=== PATIENT | male | born 1950 | race Caucasian/White ===

== ENCOUNTER 2022-01-14 09:15 | Inpatient (IN) ==
[2022-01-14] MEDS ORDERED: IOPAMIDOL 100 ML BOTTLE IV ONE (09:16)
[2022-01-14] MEDS ORDERED: morphine 4 MG/ML VIAL IV ONE ×2 (09:30→12:32)
[2022-01-14] MEDS ORDERED: 0.9 % SODIUM CHLORIDE 1,000 ML IV ONE (09:30)
[2022-01-14] MEDS ORDERED: PHENobarb/HYOSCY/ATROPINE/SCOP 1 DOSE BOTTLE PO ONE (09:37)
--- NOTE | 2022-01-14 09:41 | Emergency Department Note ---
HPI General Chief complaint: Weakness Stated complaint: abd pain/nausea/weakness Time Seen by Provider: 01/14/22 09:20 Source: patient Mode of arrival: wheelchair Limitations: no limitations History of Present Illness HPI Narrative: Narrative: Patient presents to the emergency department with a chief complaint of abdominal pain. He reports its below his ribs on both sides. He denies any fevers or chills. He reports mostly normal bowel movements he has had a few soft ones. The patient reports dry heaves there has been no vomiting otherwise. He does have a prior history of appendectomy, no other abdominal surgeries. Does have a history of GERD. Patient's pain started on Thursday, he was actually seen and evaluated in the emergency department he did have a leukocytosis of 17,000 however at that time a CT scanner was down, ultrasound of the gallbladder and kidneys was unremarkable. Patient reports his symptoms have still been lingering since. Related Data Home Medications Medication Instructions Recorded Confirmed pantoprazole 40 mg tablet,delayed 40 mg PO QAM 02/26/18 01/14/22 release Lactobacillus acidophilus 1,000 mmu cells PO QDAY 07/29/21 01/14/22 (Acidophilus) aspirin 81 mg tablet,delayed 81 mg PO QDAY 07/29/21 01/14/22 release cholecalciferol (vitamin D3) 25 25 mcg PO QDAY 07/29/21 01/14/22 mcg (1,000 unit) capsule docusate sodium 100 mg capsule 100 mg PO TID PRN cap 07/29/21 01/14/22 (Stool Softener) glucosamine sulf dipot 1 cap PO DAILY 07/29/21 01/14/22 chlr,msm,chond 550 mg-C 30 mg-salas 1 mg capsule (Glucosamine Chondroitin) lysine 500 mg tablet 500 mg PO QDAY 07/29/21 01/14/22 mecobalamin (vitamin B12) 1,000 1,000 mcg SUBLINGUAL QDAY 07/29/21 01/14/22 mcg disintegrating tablet,sublingual metformin 500 mg tablet 500 mg PO QDAY tab 07/29/21 01/14/22 milk thistle 175 mg tablet 175 mg PO BID 07/29/21 01/14/22 xgmarnlx-mkt-gbncp acid 300 1 tab PO QDAY 07/29/21 01/14/22 mcg-lycopene 600 mcg-lutein 300 mcg tablet (Men 50 Plus Multivitamin) omega-3 360 dn-nuv-ido-fish oil 1 cap PO QDAY 07/29/21 01/14/22 1,200 mg capsule,delayed release baclofen 20 mg tablet 20 mg PO BID PRN 01/14/22 01/14/22 hydralazine 25 mg tablet 25 mg PO TID 01/14/22 01/14/22 potassium chloride 10 mEq 10 meq PO QDAY 01/14/22 01/14/22 tablet,extended release(part/cryst) spironolactone 25 mg tablet 25 mg PO QDAY 01/14/22 01/14/22 verapamil 360 mg 24 hr 240 mg PO QDAY 01/14/22 01/14/22 capsule,extended release Previous Rx's Medication Instructions Recorded atorvastatin 20 mg tablet 20 mg PO QDAY #90 tab 07/29/21 gemfibrozil 600 mg tablet 600 mg PO QAM #90 tab 07/29/21 diclofenac sodium 1 % topical gel 4 g TOPICAL QID #100 g 01/08/22 dicyclomine 20 mg tablet 20 mg PO QID PRN 3 Days #12 tab 01/12/22 ondansetron 4 mg disintegrating 4 mg PO Q8H PRN #9 tab 01/12/22 tablet dbplozp-ufrubxyjgq-YGY-caffeine 30 1 cap PO Q6H PRN #120 cap 01/13/22 mg-50 mg-325 mg-40 mg capsule (Ascomp with Codeine) gabapentin 300 mg capsule 300 mg PO QHS #30 cap 01/13/22 Allergies Allergy/AdvReac Type Severity Reaction Status Date / Time No Known Drug Allergies Allergy Verified 01/14/22 09:18 Review of Systems ROS ROS Narrative: Narrative: All systems ED: reviewed and negative except as stated. [facility] Narrative Patient History Narrative: Narrative: Medical/Surgical/Family History All Active Problems (Updated 01/14/22 @ 15:42 by Roger Avila MD) SBO (small bowel obstruction) (Acute) Leukocytosis (Acute) SBO (small bowel obstruction) (Acute) Medication management (Acute) Abdominal pain (Acute) Degenerative arthritis of cervical spine (Acute) Neck pain (Acute) Left shoulder pain (Acute) Migraine (Acute) Memory loss (Acute) Hyperlipidemia (Acute) GERD (gastroesophageal reflux disease) (Acute) Hypertension (Chronic) Severe headache (Chronic) Medical History Hypertension Migraine Severe headache Surgical History History of appendectomy History of colonoscopy (08/04/11) History of tonsillectomy (~1965) Family History Sister Lung cancer Grandmother Lung cancer Paternal Brother Dementia Mother Diabetes mellitus Father Diabetes mellitus Social History Smoking Status: Never smoker Alcohol Intake Frequency: does not drink Substance Use: does not use Exam Narrative Narrative: Narrative: Vital signs noted General: Awake. Alert. No distress. HEENT: NCAT PERRL EOMI. No conjunctivitis. Membranes moist. Neck: No meningeal signs. No PTP. No adenopathy. No stridor. No masses. No STS. Cardiovascular: RRR. No murmur. No rubs. No gallops. Respiratory: No respiratory distress. Breath sounds equal. Lungs clear. Gastrointestinal: Soft. Tenderness midepigastric, worse on the left, there is no guarding rigidity or peritoneal signs Arzate sign is negative Musculoskeletal: No pain. No soft tissue swelling. Good ROM. No signs injury Skin: Warm. Dry. No rash General Limitations: no limitations Course Vital Signs Vital signs: Vital Signs Temperature 97.4 F 01/14/22 09:15 Pulse Rate 78 01/14/22 09:15 Respiratory Rate 20 01/14/22 09:15 Pulse Oximetry (%) 97 01/14/22 09:15 Temperature 98.9 F 01/14/22 14:03 Pulse Rate 74 01/14/22 14:03 Respiratory Rate 14 01/14/22 14:03 Blood Pressure 116/65 01/14/22 14:03 Pulse Oximetry (%) 92 01/14/22 14:03 [facility] MDM Narrative Medical decision making narrative: Narrative: Patient presents to the emergency department with abdominal pain, dry heaves. He last had a bowel movement 2 days ago. He states this is not uncommon for him. Denies fevers or chills. Patient was seen a few days ago unfortunately at that time CT scanner was down. Labs show a leukocytosis of 18,000 his lactate is 1.4 he is hemodynamically stable, CT scan was obtained that shows mechanical small bowel obstruction with transition point in the right side of the abdomen, mesenteric spiculation, segment of small bowel at the site of obstruction is thickened no evidence of acute ischemia, there is probable mild pneumatosis in the sigmoid colon. I spoke with Dr. Sraavia he will see and evaluate the patient. NG will be placed, patient will be started on Zosyn. Patient updated with plan of care. Lab Data Result diagrams: 01/14/22 09:33 Labs: Lab Results 01/14/22 01/14/22 01/14/22 Range/Units 09:33 09:33 11:50 WBC 18.7 H (4.5-11.0) K/mcL RBC 5.26 (4.63-6.08) M/mcL Hgb 16.2 (13.7-17.5) g/dL Hct 47.7 (40.1-51.0) % POC Hct 48 (41-55) % MCV 90.7 (80.0-100.0) fL MCH 30.8 (26.0-34.0) pg MCHC 34.0 (31.0-36.0) g/dL RDW 13.6 (11.5-14.5) % Plt Count 235 (140-440) K/mcL MPV 12.2 H (7.4-10.4) fL Neut % (Auto) 76.9 (38.0-78.0) % Lymph % (Auto) 7.7 L (15.5-49.0) % [place]ett % (Auto) 4.8 (1.0-12.0) % Eos % (Auto) 10.4 H (0.0-7.0) % Baso % (Auto) 0.2 (0.0-2.0) % Lymph # (Auto) 1.44 L (1.50-4.80) K/mcL Pickett # (Auto) 0.89 (0.10-0.90) K/mcL Eos # (Auto) 1.94 H (0.00-0.70) K/mcL Baso # (Auto) 0.04 (0.00-0.30) K/mcL Absolute Neutrophils 14.40 H (1.80-8.00) K/mcL POC Sodium 141 (133-145) mEq/L POC Potassium 3.4 (3.3-5.1) mEql/L POC Chloride 100 (96-108) mEq/L POC Total CO2 28 (22-30) mmol/L POC BUN 17 (6-20) mg/dL POC Creatinine 0.5 L (0.6-1.2) mg/dL POC Glucose 171 H (70-105) mg/dL POC WB Ioniz Calcium 1.12 L (1.16-1.32) mmEq/L Total Bilirubin 0.5 (0.1-1.0) mg/dL Direct Bilirubin < 0.2 (0-0.3) mg/dL AST 25 (<40) U/L ALT 13 (<40) U/L Alkaline Phosphatase 81 (39-117) U/L Total Protein 6.8 (5.9-8.4) gm/dL Albumin 4.1 (3.2-5.2) gm/dL Globulin 2.7 (2.2-3.7) gm/dL Lipase 17 (7-60) U/L Urine Color Yellow Urine Appearance Clear (Clear) Urine pH 6.0 (5.0-9.0) Ur Specific [place] 1.046 (1.000-1.035) Urine Protein Negative (Negative) mg/dL Urine Glucose (UA) Negative (Negative) mg/dL Urine Ketones 5 A (Negative) mg/dL Urine Occult Blood Negative (Negative) mg/dL Urine Nitrate Negative (Negative) Urine Bilirubin Negative (Negative) mg/dL Urine Urobilinogen Negative mg/dL Ur Leukocyte Esterase Negative (Negative) /uL Ur Culture Indicated? No ED POC Tests ED POC Tests: AMARILIS - SARS Antigen Negative Discharge Plan Patient/Caregiver Discharge Instructions Pt seen by PSYCHOMETRIST/PA only: No Clinical Impression: SBO (small bowel obstruction), Leukocytosis Patient Disposition: Xfer As Inpt ([facility]) Condition: Fair Discharge Date/Time: 01/14/22 13:35
[2022-01-14 09:49] LABS: POC Blood Urea Nitrogen 17 mg/dL (6-20); POC CO2 28 mmol/L (22-30); POC Calcium, Ionized 1.12 mmEq/L (1.16-1.32); POC Chloride 100 mEq/L (96-108); POC Creatinine 0.5 mg/dL (0.6-1.2); POC Glucose, Random 171 mg/dL (70-105); POC Hematocrit 48 % (41-55); POC Potassium 3.4 mEql/L (3.3-5.1); POC Sodium 141 mEq/L (133-145)
--- NOTE | 2022-01-14 10:19 | Cat Scan Report ---
INDICATION: abdominal pain, diverticulitis? COMPARISON: Previous abdominal ultrasound dated 01/12/2022 TECHNIQUE: Axial images were obtained through the abdomen and pelvis. Sagittally and coronally reformatted images. 80 mL Isovue 370 injected intravenously. Oral contrast material was not administered FINDINGS: Lung bases:Negative. No pulmonary parenchymal nodule. No pleural fluid or pericardial fluid Liver:Negative. No focal intrahepatic mass. No focal abnormality. Liver contour is smooth. No evidence for cirrhosis Gallbladder, bilary:No calcified gallstones. No gallbladder wall thickening. No dilated intra or extrahepatic bile ducts. Spleen:No splenomegaly. Normal enhancement of splenic and portal veins. Pancreas:No pancreatic mass. No peripancreatic abnormality Adrenal glands:Negative Kidneys,ureters,bladder:No solid renal mass. No hydronephrosis. No obstructing or nonobstructing calculi. No hydroureter. No ureteral calculus. No bladder stone. No detectable bladder mass. Gastrointestinal:There is no detectable colonic mass. There is mild diverticulosis without evidence for diverticulitis. There is mild pneumatosis coli in the sigmoid colon. There is dilatation of the jejunum and proximal ileum. There is a segment of thickened small bowel wall in the right side of the abdomen with mild small bowel feces. There is mechanical small bowel obstruction. There is abnormal mesentery in the right side of the abdomen with a spiculated appearance. This could be postsurgical scarring. Carcinoid tumor is possible. Follow-up CT scan is recommended. A well-defined mesenteric mass is not appreciated. Small bowel wall enhances without evidence for small bowel ischemia. Negative stomach and duodenum. No focal abnormality. Appendix: The appendix is removed Vascular:Negative abdominal aorta. Superior mesenteric artery and celiac trunk are normal. Normal opacification of the inferior mesenteric artery Lymphatic:No retroperitoneal or mesenteric adenopathy Mesentery, peritoneum: There is ascitic fluid. This is perihepatic and pelvic. There is no discrete peritoneal based mass. There is no pneumoperitoneum. No discrete intra-abdominal abscess Reproductive:Prostate is not significantly enlarged Musculoskeletal:No lumbar compression fractures. Multilevel degenerative disc disease. Sacrum and pelvis are negative. Hips are negative No abdominal wall or inguinal hernia IMPRESSION: 1. Mechanical small bowel obstruction with transition point in the right side of the abdomen. 2. There is mesenteric spiculation. This may be postsurgical. Carcinoid tumor is not excluded. Follow-up examination recommended 3. Moderate ascites 4. Segment of small bowel at the site of obstruction with thickened bowel wall. There is no nonenhancing small bowel to indicate ischemia 5. Probable mild pneumatosis coli in the sigmoid colon. This is nonspecific. 6. Severe multilevel degenerative disc disease and lumbar spine. No acute abnormality The exam was performed using radiation dose optimization techniques including, but not limited to, automated exposure control, adjustment of the mA and/or kV according to patient size and use of iterative reconstruction technique. Interpreted and Authenticated by: Munir Preciado 01/14/22
[2022-01-14 10:31] LABS: Basophils # (Auto) 0.04 K/mcL (0.00-0.30); Basophils % (Auto) 0.2 % (0.0-2.0); Eosinophils # (Auto) 1.94 K/mcL (0.00-0.70); Eosinophils % (Auto) 10.4 % (0.0-7.0); Hematocrit 47.7 % (40.1-51.0); Hemoglobin 16.2 g/dL (13.7-17.5); Lymphocytes # (Auto) 1.44 K/mcL (1.50-4.80); Lymphocytes % (Auto) 7.7 % (15.5-49.0); Mean Cell Volume 90.7 fL (80.0-100.0); Mean Platelet Volume 12.2 fL (7.4-10.4); Monocytes # (Auto) 0.89 K/mcL (0.10-0.90); Monocytes % (Auto) 4.8 % (1.0-12.0); Neutrophils % (Auto) 76.9 % (38.0-78.0); Platelet Count 235 K/mcL (140-440); RBC 5.26 M/mcL (4.63-6.08); Red Cell Distribution Width 13.6 % (11.5-14.5); WBC 18.7 K/mcL (4.5-11.0)
[2022-01-14 10:47] LABS: ALT/SGPT 13 U/L (<40); AST/SGOT 25 U/L (<40); Albumin 4.1 gm/dL (3.2-5.2); Alkaline Phosphatase 81 U/L (39-117); Bilirubin,Direct < 0.2 mg/dL (0-0.3); Bilirubin,Total 0.5 mg/dL (0.1-1.0); Globulin 2.7 gm/dL (2.2-3.7)
[2022-01-14] MEDS ORDERED: PIPERACILLIN SODIUM/TAZOBACTAM 3.375 GM in DEXTROSE 5% IN WATER 50 ML IV ONE (11:08)
--- NOTE | 2022-01-14 12:39 | General Surgery Consult Note ---
HPI Data of Consult Patient: new to practice Consult date: 01/14/22 Primary Care Provider: Zeina Harrington Consult Narrative Patient Information: Note initiated : 01/14/22 at 12:21 pm Service Date, if different from initiated Date: [] Patient: Damian Lambert 71 y/o M admitted on for abd pain/nausea/weakness. Chief Complaint: [Abdominal Pain] Mr Lambert is seen in consultation after a now 3 day history of non resolving abdominal pain centered largely in the Upper Abdomen and characterized as well by dry heaves, fatigue, along with lack of gas and stool. He has not had fevers or chills and denies any bleeding. His most recent Colonoscopy was 5 years ago and was positive only for a few polyps. He has NO history of Crohns or Ulcerative Colitis and he describes his health as good overall. He denies any cardiac issues and is not on any oral anticoagulants. He has no history of pulmonary issues and denies use of CPAP, BIPAP or home O2. He has issues with HTN and Hyperlipidemia and also gets migraines. He has had a past open appendectomy dating back 20-30 years but no other abdominal operations. There is no history of substantial weight loss. He was seen in the ER yesterday and is back today not feeling improved. CT Scan demonstrates findings felt to be c onsistent with SBO without evidence of ischemia or definitive etiology. Reason for consult: Bowel Obstruction cc:: CC: PFSH PFSH All Active Problems (Updated 01/14/22 @ 12:32 by Balaji Saravia MD) SBO (small bowel obstruction) (Acute) Medication management (Acute) Abdominal pain (Acute) Degenerative arthritis of cervical spine (Acute) Neck pain (Acute) Left shoulder pain (Acute) Migraine (Acute) Memory loss (Acute) Hyperlipidemia (Acute) GERD (gastroesophageal reflux disease) (Acute) Hypertension (Chronic) Severe headache (Chronic) Medical History Hypertension Migraine Severe headache Surgical History History of appendectomy History of colonoscopy (08/04/11) History of tonsillectomy (~1965) Family History Sister Lung cancer Grandmother Lung cancer Paternal Brother Dementia Mother Diabetes mellitus Father Diabetes mellitus Social History marital status: occupational status: retired smoking status: Never smoker alcohol intake frequency: does not drink substance use type: does not use MEDS/ALLERGIES Home Medications and Allergies Home Medications Medication Instructions Recorded Confirmed Type pantoprazole 40 mg tablet,delayed 40 mg PO QAM 02/26/18 01/13/22 History release Lactobacillus acidophilus 1,000 mmu cells PO QDAY 07/29/21 01/13/22 History (Acidophilus) aspirin 81 mg tablet,delayed 81 mg PO QDAY 07/29/21 01/13/22 History release atorvastatin 20 mg tablet 20 mg PO QDAY #90 tab 07/29/21 01/13/22 Rx cholecalciferol (vitamin D3) 25 25 mcg PO QDAY 07/29/21 01/13/22 History mcg (1,000 unit) capsule docusate sodium 100 mg capsule 100 mg PO TID PRN cap 07/29/21 01/13/22 History (Stool Softener) gemfibrozil 600 mg tablet 600 mg PO QAM #90 tab 07/29/21 01/13/22 Rx glucosamine sulf dipot cap PO 07/29/21 01/13/22 History chlr,msm,chond 550 mg-C 30 mg-salas 1 mg capsule (Glucosamine Chondroitin) lysine 500 mg tablet 500 mg PO QDAY 07/29/21 01/13/22 History mecobalamin (vitamin B12) 1,000 1,000 mcg SUBLINGUAL QDAY 07/29/21 01/13/22 History mcg disintegrating tablet,sublingual metformin 500 mg tablet 500 mg PO QDAY tab 07/29/21 01/13/22 History milk thistle 175 mg tablet 175 mg PO BID 07/29/21 01/13/22 History gohtewvq-pcn-ojlhp acid 300 1 tab PO QDAY 07/29/21 01/13/22 History mcg-lycopene 600 mcg-lutein 300 mcg tablet (Men 50 Plus Multivitamin) omega-3 360 rz-xdu-neq-fish oil 1 cap PO QDAY 07/29/21 01/13/22 History 1,200 mg capsule,delayed release hydralazine 25 mg tablet See Rx Instructions .ROUTE 09/30/21 01/13/22 Rx .COMPLEX #90 tab potassium chloride 10 mEq See Rx Instructions .ROUTE 09/30/21 01/13/22 Rx tablet,extended release(part/cryst) .COMPLEX #30 tab spironolactone 25 mg tablet See Rx Instructions .ROUTE 09/30/21 01/13/22 Rx .COMPLEX #30 tab diclofenac sodium 1 % topical gel 4 g TOPICAL QID #100 g 01/08/22 01/13/22 Rx dicyclomine 20 mg tablet 20 mg PO QID PRN 3 Days #12 tab 01/12/22 01/13/22 Rx ondansetron 4 mg disintegrating 4 mg PO Q8H PRN #9 tab 01/12/22 01/13/22 Rx tablet hrsybpn-qtoocuscqo-CXJ-caffeine 30 1 cap PO Q6H PRN #120 cap 01/13/22 01/13/22 Rx mg-50 mg-325 mg-40 mg capsule (Ascomp with Codeine) gabapentin 300 mg capsule 300 mg PO QHS #30 cap 01/13/22 01/13/22 Rx verapamil 360 mg 24 hr 360 mg PO QDAY #90 cap 01/13/22 01/13/22 Rx capsule,extended release Allergies Allergy/AdvReac Type Severity Reaction Status Date / Time No Known Drug Allergies Allergy Verified 01/14/22 09:18 Physical Examination Vital Signs Vital signs: Temp Pulse Resp BP Pulse Ox 97.4 F 75 20 137/63 95 01/14/22 09:15 01/14/22 11:21 01/14/22 11:21 01/14/22 11:21 01/14/22 11:21 General physical appearance General physical exam: well developed, well nourished and no distress Eyes Eye exam: normal ocular movement; negative icteric ENT ENT exam: normal pinna and normal nares Head Head exam IM: Present atraumatic, normal inspection and normocephalic Neck Neck exam: no masses, trachea midline and no lymphadenopathy; negative deviated trachea Cardiovascular Cardiovascular exam IM: Present normal rate and rhythm and RRR Respiratory Respiratory exam: normal expansion and normal respiratory effort Abdomen Abdomen: Present soft (soft and non distended, mild diffuse tenderness but minimal, no mass or hernia appreciable on exam ) Integumentary Integumentary: Present no rash and other (normal appearing intact skin ) Neurologic Neurologic: Present other (grossly intact) Musculoskeletal Musculoskeletal: Present other (normal external appearance ) Psychiatric Psychiatric: Present oriented to time, oriented to person and oriented to place Results Labs Result diagrams: 01/14/22 09:33 Labs: Abnormal lab results 01/14/22 01/14/22 Range/Units 09:33 09:33 WBC 18.7 H (4.5-11.0) K/mcL MPV 12.2 H (7.4-10.4) fL Lymph % (Auto) 7.7 L (15.5-49.0) % Eos % (Auto) 10.4 H (0.0-7.0) % Lymph # (Auto) 1.44 L (1.50-4.80) K/mcL Eos # (Auto) 1.94 H (0.00-0.70) K/mcL Absolute Neutrophils 14.40 H (1.80-8.00) K/mcL POC Creatinine 0.5 L (0.6-1.2) mg/dL POC Glucose 171 H (70-105) mg/dL POC WB Ioniz Calcium 1.12 L (1.16-1.32) mmEq/L Diabetes panel 01/14/22 Range/Units 09:33 AST 25 (<40) U/L ALT 13 (<40) U/L Alkaline Phosphatase 81 (39-117) U/L Total Protein 6.8 (5.9-8.4) gm/dL Albumin 4.1 (3.2-5.2) gm/dL Calcium panel 01/14/22 Range/Units 09:33 Albumin 4.1 (3.2-5.2) gm/dL Adrenal panel 01/14/22 Range/Units 09:33 Total Bilirubin 0.5 (0.1-1.0) mg/dL AST 25 (<40) U/L ALT 13 (<40) U/L Alkaline Phosphatase 81 (39-117) U/L Total Protein 6.8 (5.9-8.4) gm/dL Albumin 4.1 (3.2-5.2) gm/dL All other labs normal. A/P Assessment and plan (1) SBO (small bowel obstruction): Assessment and plan: Abdominal Pain/Syndrome of Uncertain Etiology Certainly an adhesion related SBO is a possibility but other possible issues like malignancy, inflammatory bowel disease, infectious enteritis and others as well are also possibilities He appears relatively benign overall and there are no indications for urgent or emergent operative intervention at this time. Issues and options are discussed at length with he and his family. I recommend NGT decompression, IVFs, bowel rest, IV ABs and close observational management for now with further intervention and management to be determined by clinical course and they understand that its possible he may require operative intervention. They are in agreement with the plan. My contact info is provided and we will ask Medicine to assist with care related to his HTN and Diabetic mgmt. Status: Acute Time Spent With Patient Time: Total time spent is greater than 50% in coordination of care (as documented) at patient's floor/unit and/or counseling patient:
[2022-01-14] MEDS ORDERED: ONDANSETRON 4 MG/2 ML VIAL IV PRN (12:40)
[2022-01-14] MEDS ORDERED: PANTOPRAZOLE 40 MG VIAL IV SCH (12:50)
[2022-01-14] MEDS ORDERED: PANTOPRAZOLE 40 MG VIAL IV ONE (13:02)
[2022-01-14 13:05] LABS: Appearance,Urine CLEAR (Clear); Bilirubin,Urine Negative (Negative); Color,Urine YELLOW; Culture Indicated,Urine No; Glucose,Urine (UA) Negative (Negative); Ketones,Urine 5 mg/dL (Negative); Leukocyte Esterase,Urine Negative /uL (Negative); Nitrate,Urine Negative (Negative); Protein,Urine Negative (Negative); Specific Gravity,Urine 1.046 (1.000-1.035); Urine Blood Negative (Negative); Urobilinogen,Urine Negative
--- NOTE | 2022-01-14 13:05 | XRay Report ---
INDICATION: post NG tube placement. TECHNIQUE: Supine abdomen. COMPARISON: CT scan dated 01/14/2022 FINDINGS:Interval placement of an esophagogastric tube with its tip in the body of the stomach. There is some small bowel gas without significant dilatation. There is very little colonic gas or gas or fecal material identified. No biliary or portal venous gas. No detectable pneumatosis. Incidental note is made of severe multilevel degenerative disc disease. IMPRESSION: Esophagogastric tube in the stomach as above Interpreted and Authenticated by: Munir Preciado 01/14/22
--- NOTE | 2022-01-14 13:24 | Internal Medicine Consult Note ---
HPI Data of Consult Consult date: 01/14/22 Requesting physician: Balaji Saravia Primary Care Provider: Zeina Harrington Consult Narrative Patient Information: Note initiated : 01/14/22 at 1:19 pm Service Date, if different from initiated Date: [] Patient: Damian Lambert 71 y/o M admitted on for abd pain/nausea/weakness. Chief Complaint: [abeominal pain] Mr. Lambert is a 71-year-old male with a history of hypertension, hyperlipidemia, degenerative disc disease, GERD, migraine headaches who presented to the emergency department for abdominal pain and was found to have a small bowel obstruction. Internal medicine was consulted for medical management. Review of systems Constitutional: no fever, fatigue, or weight loss Eyes: no vision changes or pain Cardiovascular: no chest pain, no palpitations Respiratory: no cough or dyspnea Gastrointestinal: Positive for right side abdominal pain. Genitourinary: no dysuria or difficulty voiding Musculoskeletal: no arthralgia or myalgia Integumentary: no skin lesion or wound Neurological: no focal weakness or numbness Psychiatric: no anxiety or depression Physical exam Head: Atraumatic, normal inspection. Eyes: normal appearance, no scleral icterus. Neck: full ROM Respiratory: no respiratory distress. Cardiovascular: normal rate and rhythm, S1, S2. GI/Abdominal: Decreased bowel sounds, soft, nontender, no guarding. Extremities: full range of motion, nontender. Neurological: CN II-XII intact, intact motor, intact sensation. Psychiatric: normal mood. Skin: warm, normal color cc:: CC: PFSH PFSH All Active Problems (Updated 01/14/22 @ 12:32 by Balaji Saravia MD) SBO (small bowel obstruction) (Acute) Medication management (Acute) Abdominal pain (Acute) Degenerative arthritis of cervical spine (Acute) Neck pain (Acute) Left shoulder pain (Acute) Migraine (Acute) Memory loss (Acute) Hyperlipidemia (Acute) GERD (gastroesophageal reflux disease) (Acute) Hypertension (Chronic) Severe headache (Chronic) Medical History Hypertension Migraine Severe headache Surgical History History of appendectomy History of colonoscopy (08/04/11) History of tonsillectomy (~1965) Family History Sister Lung cancer Grandmother Lung cancer Paternal Brother Dementia Mother Diabetes mellitus Father Diabetes mellitus Social History marital status: occupational status: retired smoking status: Never smoker alcohol intake frequency: does not drink substance use type: does not use MEDS/ALLERGIES Home Medications and Allergies Home Medications Medication Instructions Recorded Confirmed Type pantoprazole 40 mg tablet,delayed 40 mg PO QAM 02/26/18 01/13/22 History release Lactobacillus acidophilus 1,000 mmu cells PO QDAY 07/29/21 01/13/22 History (Acidophilus) aspirin 81 mg tablet,delayed 81 mg PO QDAY 07/29/21 01/13/22 History release atorvastatin 20 mg tablet 20 mg PO QDAY #90 tab 07/29/21 01/13/22 Rx cholecalciferol (vitamin D3) 25 25 mcg PO QDAY 07/29/21 01/13/22 History mcg (1,000 unit) capsule docusate sodium 100 mg capsule 100 mg PO TID PRN cap 07/29/21 01/13/22 History (Stool Softener) gemfibrozil 600 mg tablet 600 mg PO QAM #90 tab 07/29/21 01/13/22 Rx glucosamine sulf dipot cap PO 07/29/21 01/13/22 History chlr,msm,chond 550 mg-C 30 mg-salas 1 mg capsule (Glucosamine Chondroitin) lysine 500 mg tablet 500 mg PO QDAY 07/29/21 01/13/22 History mecobalamin (vitamin B12) 1,000 1,000 mcg SUBLINGUAL QDAY 07/29/21 01/13/22 History mcg disintegrating tablet,sublingual metformin 500 mg tablet 500 mg PO QDAY tab 07/29/21 01/13/22 History milk thistle 175 mg tablet 175 mg PO BID 07/29/21 01/13/22 History nciydegd-efo-huhfo acid 300 1 tab PO QDAY 07/29/21 01/13/22 History mcg-lycopene 600 mcg-lutein 300 mcg tablet (Men 50 Plus Multivitamin) omega-3 360 qc-ima-aly-fish oil 1 cap PO QDAY 07/29/21 01/13/22 History 1,200 mg capsule,delayed release hydralazine 25 mg tablet See Rx Instructions .ROUTE 09/30/21 01/13/22 Rx .COMPLEX #90 tab potassium chloride 10 mEq See Rx Instructions .ROUTE 09/30/21 01/13/22 Rx tablet,extended release(part/cryst) .COMPLEX #30 tab spironolactone 25 mg tablet See Rx Instructions .ROUTE 09/30/21 01/13/22 Rx .COMPLEX #30 tab diclofenac sodium 1 % topical gel 4 g TOPICAL QID #100 g 01/08/22 01/13/22 Rx dicyclomine 20 mg tablet 20 mg PO QID PRN 3 Days #12 tab 01/12/22 01/13/22 Rx ondansetron 4 mg disintegrating 4 mg PO Q8H PRN #9 tab 01/12/22 01/13/22 Rx tablet kfdmmwo-gcqaelhrwg-XDH-caffeine 30 1 cap PO Q6H PRN #120 cap 01/13/22 01/13/22 Rx mg-50 mg-325 mg-40 mg capsule (Ascomp with Codeine) gabapentin 300 mg capsule 300 mg PO QHS #30 cap 01/13/22 01/13/22 Rx verapamil 360 mg 24 hr 360 mg PO QDAY #90 cap 01/13/22 01/13/22 Rx capsule,extended release Allergies Allergy/AdvReac Type Severity Reaction Status Date / Time No Known Drug Allergies Allergy Verified 01/14/22 09:18 EXAM Constitutional Vitals: Temp Pulse Resp BP Pulse Ox 97.4 F 75 20 137/63 95 01/14/22 09:15 01/14/22 11:21 01/14/22 11:21 01/14/22 11:21 01/14/22 11:21 DATA Data Completed and Pending Labs: Labs from last 24 hours 01/14/22 01/14/22 01/14/22 11:50 09:33 09:33 WBC 18.7 H RBC 5.26 Hgb 16.2 Hct 47.7 POC Hct 48 MCV 90.7 MCH 30.8 MCHC 34.0 RDW 13.6 Plt Count 235 MPV 12.2 H Neut % (Auto) 76.9 Lymph % (Auto) 7.7 L [place] % (Auto) 4.8 Eos % (Auto) 10.4 H Baso % (Auto) 0.2 Lymph # (Auto) 1.44 L [place] # (Auto) 0.89 Eos # (Auto) 1.94 H Baso # (Auto) 0.04 Absolute Neutrophils 14.40 H POC Sodium 141 POC Potassium 3.4 POC Chloride 100 POC Total CO2 28 POC BUN 17 POC Creatinine 0.5 L POC Glucose 171 H POC WB Ioniz Calcium 1.12 L Total Bilirubin 0.5 Direct Bilirubin < 0.2 AST 25 ALT 13 Alkaline Phosphatase 81 Total Protein 6.8 Albumin 4.1 Globulin 2.7 Lipase 17 Urine Color Yellow Urine Appearance Clear Urine pH 6.0 Ur Specific [place] 1.046 Urine Protein Negative Urine Glucose (UA) Negative Urine Ketones 5 A Urine Occult Blood Negative Urine Nitrate Negative Urine Bilirubin Negative Urine Urobilinogen Negative Ur Leukocyte Esterase Negative Ur Culture Indicated? No A/P Narrative A/P Narrative: Assessment: 71-year-old male with a history of hypertension, hyperlipidemia, GERD, degenerative disc disease, migraine headaches admitted for a small bowel obstruction. #Small bowel obstruction #Leukocytosis #Hypertension #Hyperlipidemia #GERD #Degenerative disc disease #Migraine headaches Plan -Small bowel obstruction management per surgery. -Home medication reconciliation, resume essential meds including migraine meds. -Diet per surgery. -DVT prophylaxis: Per surgery Time Spent With Patient Time: Total time spent is greater than 50% in coordination of care (as documented) at patient's floor/unit and/or counseling patient:
[2022-01-14] MEDS: DEXTROSE 5%-1/2NS W/10MEQ KCL 1,000 ML IV SCH ×2 (13:54→21:16)
[2022-01-14] MEDS: 0.9 % SODIUM CHLORIDE 10 ML SYRINGE IV SCH ×2 (13:55→21:10)
[2022-01-14] MEDS ORDERED: DEXTROSE 50% 50 ML VIAL IV PRN (15:14)
[2022-01-14] MEDS ORDERED: DEXTROSE 31 GM ORAL.SUSP PO PRN (15:14)
[2022-01-14] MEDS ORDERED: BACLOFEN 10 MG TABLET PO PRN (15:31)
[2022-01-14] MEDS ORDERED: [UNRECOGNIZED DRUG - OTHER] PO PRN ×2 (15:42→16:00)
[2022-01-14] MEDS ORDERED: CODEINE PO PRN ×2 (15:42→16:00)
[2022-01-14] MEDS: Diclofenac Sodium 1 % gel TOPICAL SCH ×2 (16:18→21:10)
[2022-01-14] MEDS: INSULIN LISPRO 1 UNIT/0.01 ML UNIT SQ SCH ×2 (17:36→21:09)
[2022-01-14] MEDS: PIPERACILLIN SODIUM/TAZOBACTAM 3.375 GM in DEXTROSE 5% IN WATER 50 ML IV SCH (17:42)
[2022-01-14] MEDS: GABAPENTIN 300 MG CAPSULE PO SCH (21:09)
[2022-01-15] MEDS: PIPERACILLIN SODIUM/TAZOBACTAM 3.375 GM in DEXTROSE 5% IN WATER 50 ML IV SCH ×4 (00:20→17:33)
[2022-01-15] MEDS: DEXTROSE 5%-1/2NS W/10MEQ KCL 1,000 ML IV SCH ×3 (04:58→21:53)
[2022-01-15] MEDS: 0.9 % SODIUM CHLORIDE 10 ML SYRINGE IV SCH ×3 (06:18→21:56)
[2022-01-15 07:01] LABS: Estimated Average Glucose(eAG) 114 mg/dL; Hemoglobin A1C 5.6 % Hgb (4.0-6.0)
[2022-01-15 07:12] LABS: Blood Urea Nitrogen 12 mg/dL (8-23); Calcium 8.4 mg/dL (8.6-10.4); Carbon Dioxide 32 mmol/L (22-30); Chloride 98 mmol/L (96-108); Glomerular Filtration Rate 102; Glucose 143 mg/dL (70-105)
[2022-01-15 07:14] LABS: Hemoglobin 12.8 g/dL (13.7-17.5); Mean Cell Volume 91.8 fL (80.0-100.0); Mean Corpuscular HGB Conc 33.7 g/dL (31.0-36.0); Platelet Count 180 K/mcL (140-440); RBC 4.14 M/mcL (4.63-6.08); Red Cell Distribution Width 13.3 % (11.5-14.5); WBC 11.1 K/mcL (4.5-11.0)
[2022-01-15] MEDS: GEMFIBROZIL 600 MG TABLET PO SCH (08:59)
[2022-01-15] MEDS: ATORVASTATIN 20 MG TABLET PO SCH (08:59)
[2022-01-15] MEDS ORDERED: SPIRONOLACTONE 25 MG TABLET PO SCH (09:00)
--- NOTE | 2022-01-15 09:56 | General Surgery Progress Note ---
SUBJECTIVE Subjective Patient information: Note initiated : 01/15/22 at 9:52 am Service Date, if different from initiated Date: [] Patient: Damian Lambert 71 y/o M admitted on 01/14/22 for abd pain/nausea/weakness. Chief Complaint: [HD#2 SBO] Seems to feel better overall this am, had a BM but denies flatus. NGT outputs have been fairly high. Voiding adequate amounts. Constitutional Vitals: Vital Signs Temp Pulse Resp BP Pulse Ox 98.9 F 66 18 142/71 94 01/15/22 07:49 01/15/22 07:49 01/15/22 07:49 01/15/22 07:49 01/15/22 07:49 Period Temp Pulse Resp BP Sys/Seaman Pulse Ox Last 24 Hr 97.5 F-98.9 F 61-82 13-20 116-163/59-75 89-97 Intake and Output 01/14/22 01/15/22 01/15/22 21:59 05:59 13:59 Intake Total 971 1013 50 Output Total 1350 925 1 Balance -379 88 49 Weight 159 lb 1.6 oz Intake & Output: Intake & Output 01/14/22 01/15/22 01/15/22 21:59 05:59 13:59 Intake Total 971 1013 50 Output Total 1350 925 1 Balance -379 88 49 Weight 159 lb 1.6 oz Intake: IV 971 1013 50 Dextrose 5%-1/2Ns W/10Meq KCl 1 921 963 ,000 ml @ 125 mls/hr IV .Q8H [facility] Rx#:[id number] Zosyn 3.375 gm In Dextrose 5% 50 50 50 in Water 50 ml @ 100 mls/hr IV Q6H [facility] Rx#:[id number] Oral 0 Output: Gastric Drainage 1000 525 Right Nare 1000 525 Void Amount 350 400 Stool 1 Other: Urine Appearance Clear Urine Color Bright Yellow Stool Size Small Stool Color Brown Stool Consistency Formed # Voids 1 Exam: Looks well, NAD Respiratory Additional comments: normal respiratory effort without distress Cardiovascular Cardiovascular exam: Present normal rate and rhythm and RRR GI/Abdominal Additional comments: soft and non tender, non distended, NGT in place and currently capped Extremities Exam Additional comments: well perfused Neurological Exam Neurological exam: Present alert and oriented X3 Psychiatric Psychiatric exam: Present normal affect A/P Narrative A/P Narrative: HD #2 SBO Seems to be doing well overall Labs have normalized and exam benign Continue current mgmt , increase activity and re check abdominal x rays in am Probable SBFT in next 24-48 hours dependent on clinical course Issues reviewed and discussed with family and patient at length while in room Time Spent With Patient Time: Total time spent is greater than 50% in coordination of care (as documented) at patient's floor/unit and/or counseling patient:
[2022-01-15] MEDS: INSULIN LISPRO 1 UNIT/0.01 ML UNIT SQ SCH ×4 (10:02→21:53)
[2022-01-15] MEDS: Diclofenac Sodium 1 % gel TOPICAL SCH ×4 (10:03→21:55)
[2022-01-15] MEDS: VERAPAMIL 120 MG TAB.XL.24H PO SCH (10:03)
[2022-01-15] MEDS: PANTOPRAZOLE 40 MG TABLET PO SCH (10:03)
[2022-01-15] MEDS: CYANOCOBALAMIN (VITAMIN B-12) 500 MCG TABLET PO SCH (10:03)
--- NOTE | 2022-01-15 14:12 | Internal Med Progress Note ---
SUBJECTIVE Subjective Patient information: Note initiated : 01/15/22 at 2:10 pm Service Date, if different from initiated Date: [] Patient: Damian Lambert 71 y/o M admitted on 01/14/22 for abd pain/n ausea/weakness. Chief Complaint: [] Interval history: Mr. Lambert is a 71-year-old male with a history of hypertension, hyperlipidemia, degenerative disc disease, GERD, migraine headaches who presented to the emergency department for abdominal pain and was found to have a small bowel obstruction. Internal medicine was consulted for medical management. / Patient had a loose bowel movement today, feels like he is going to have another bowel movement this morning. Continues n.p.o. per surgery. Physical exam Head: Atraumatic, normal inspection. Eyes: normal appearance, no scleral icterus. Neck: full ROM Respiratory: no respiratory distress. Cardiovascular: normal rate and rhythm, S1, S2. GI/Abdominal: Nasogastric tube present, soft, nontender, no guarding. Extremities: full range of motion, nontender. Neurological: CN II-XII intact, intact motor, intact sensation. Psychiatric: normal mood. Skin: warm, normal color Constitutional Vitals: Vital Signs Temp Pulse Resp BP Pulse Ox 98.3 F 64 18 141/71 94 01/15/22 11:39 01/15/22 11:39 01/15/22 11:39 01/15/22 11:39 01/15/22 07:49 Period Temp Pulse Resp BP Sys/Seaman Pulse Ox Last 24 Hr 97.5 F-98.9 F 61-74 14-18 116-148/59-75 92-96 Intake and Output 01/15/22 01/15/22 01/15/22 05:59 13:59 21:59 Intake Total 1013 1050 Output Total 925 401 Balance 88 649 Weight 72.167 kg Patient Weight 01/16/22 05:59 Weight 72.167 kg Intake & Output: Intake & Output 01/15/22 01/15/22 01/15/22 05:59 13:59 21:59 Intake Total 1013 1050 Output Total 925 401 Balance 88 649 Weight 72.167 kg Intake: IV 1013 1050 Dextrose 5%-1/2Ns W/10Meq KCl 1 963 1000 ,000 ml @ 125 mls/hr IV .Q8H [facility] Rx#:[id number] Zosyn 3.375 gm In Dextrose 5% 50 50 in Water 50 ml @ 100 mls/hr IV Q6H [facility] Rx#:[id number] Oral 0 Output: Gastric Drainage 525 Right Nare 525 Void Amount 400 400 Stool 1 Other: Urine Appearance Cloudy Urine Color Bright Yellow Urine Odor Normal Stool Size Moderate Stool Color Brown Stool Consistency Soft Formed Cylindrical # Voids 1 OBJ DATA Labs CBC & Chem 7: 01/15/22 05:29 01/15/22 05:29 Labs: Abnormal Lab Results 01/15/22 01/15/22 01/14/22 05:29 05:29 11:50 WBC 11.1 H RBC 4.14 L Hgb 12.8 L Hct 38.0 L MPV 12.0 H Lymph % (Auto) Eos % (Auto) Lymph # (Auto) Eos # (Auto) Absolute Neutrophils Carbon Dioxide 32 H Anion Gap 7.0 L Creatinine 0.6 L POC Creatinine Glucose 143 H POC Glucose Calcium 8.4 L POC WB Ioniz Calcium Urine Ketones 5 A 01/14/22 01/14/22 09:33 09:33 WBC 18.7 H RBC Hgb Hct MPV 12.2 H Lymph % (Auto) 7.7 L Eos % (Auto) 10.4 H Lymph # (Auto) 1.44 L Eos # (Auto) 1.94 H Absolute Neutrophils 14.40 H Carbon Dioxide Anion Gap Creatinine POC Creatinine 0.5 L Glucose POC Glucose 171 H Calcium POC WB Ioniz Calcium 1.12 L Urine Ketones Meds: Medications Atorvastatin Calcium (Atorvastatin 20 Mg Tablet) 20 mg PO QDAY [facility] Last Admin: 01/15/22 08:59 Dose: 20 mg Documented by: Baclofen (Baclofen 10 Mg Tablet) 20 mg PO BID PRN PRN Reason: Pain Last Admin: 01/15/22 08:59 Dose: 20 mg Documented by: Cyanocobalamin (Cyanocobalamin (Vitamin B-12) 500 Mcg Tablet) 1,000 mcg PO DAILY [facility] Last Admin: 01/15/22 10:03 Dose: Not Given Documented by: Dextrose (Dextrose 50% 50 Ml Vial) 0 ml IV UD PRN PRN Reason: Per Sliding Scale Diagnostic Test (Pha) (Accu-Chek 1 Each Strip) 1 each FS ACHS [facility] Last Admin: 01/15/22 12:13 Dose: 1 each Documented by: Gabapentin (Gabapentin 300 Mg Capsule) 300 mg PO QHS [facility] Last Admin: 01/14/22 21:09 Dose: 300 mg Documented by: Gemfibrozil (Gemfibrozil 600 Mg Tablet) 600 mg PO QAM [facility] Last Admin: 01/15/22 08:59 Dose: 600 mg Documented by: Glucose (Dextrose 31 Gm Oral.Susp) 15 gm PO PRN PRN PRN Reason: Hypoglycemia Hydromorphone HCl (Hydromorphone 0.5 Mg/0.5 Ml Syringe) 0.5 mg IV Q2HP PRN; Protocol PRN Reason: Per Pain Protocol Piperacillin Sod/Tazobactam (Sod 3.375 gm/ Dextrose) 50 mls @ 100 mls/hr IV Q6H [facility]; Protocol Last Admin: 01/15/22 13:05 Dose: 100 mls/hr Documented by: Potassium Chloride/Dextrose/Sod Cl (Dextrose 5%-1/2ns W/10meq Kcl) 1,000 mls @ 125 mls/hr IV .Q8H [facility] Last Admin: 01/15/22 13:06 Dose: 125 mls/hr Documented by: Insulin Human Lispro (Insulin Lispro 1 Unit/0.01 Ml Unit) 0 unit SQ ACHS [facility]; Protocol Last Admin: 01/15/22 12:32 Dose: Not Given Documented by: Ondansetron HCl (Ondansetron 4 Mg/2 Ml Vial) 4 mg IV Q6HP PRN PRN Reason: Nausea And Vomiting Pantoprazole Sodium (Pantoprazole 40 Mg Tablet) 40 mg PO [facility] Last Admin: 01/15/22 10:03 Dose: Not Given Documented by: Diclofenac Sodium 1 (% Gel) 1 dose TOPICAL QID [facility] Last Admin: 01/15/22 12:31 Dose: Not Given Documented by: Codeine 30mg- Butalbital 50mg-Asa 325mg-Caffeine 40mg 1 dose PO Q6HP PRN PRN Reason: headache Sodium Chloride (0.9 % Sodium Chloride 10 Ml Syringe) 10 ml IV Q8 [facility] Last Admin: 01/15/22 12:32 Dose: Not Given Documented by: Verapamil HCl (Verapamil 120 Mg Tab.Xl.24h) 240 mg PO DAILY [facility] Last Admin: 01/15/22 10:03 Dose: Not Given Documented by: A/P Narrative A/P Narrative: Assessment: 71-year-old male with a history of hypertension, hyperlipidemia, GERD, degenerative disc disease, migraine headaches admitted for a small bowel obstruction. #Small bowel obstruction, possibly resolving #Leukocytosis, improved #Hypertension, stable #Hyperlipidemia #GERD #Degenerative disc disease #Migraine headaches Plan -Small bowel obstruction management per surgery. -Currently n.p.o. per surgery. -Diet per surgery. -DVT prophylaxis: Per surgery Time Spent With Patient Time: Total time spent is greater than 50% in coordination of care (as documented) at patient's floor/unit and/or counseling patient:
[2022-01-15] MEDS: HYDROmorphone 0.5 MG/0.5 ML SYRINGE IV PRN (15:58)
[2022-01-15] MEDS: GABAPENTIN 300 MG CAPSULE PO SCH (21:55)
[2022-01-16] MEDS: PIPERACILLIN SODIUM/TAZOBACTAM 3.375 GM in DEXTROSE 5% IN WATER 50 ML IV SCH ×5 (00:25→23:53)
[2022-01-16] MEDS: 0.9 % SODIUM CHLORIDE 10 ML SYRINGE IV SCH ×4 (04:38→23:53)
[2022-01-16 06:31] LABS: Hematocrit 39.4 % (40.1-51.0); Hemoglobin 13.3 g/dL (13.7-17.5); Mean Cell Volume 91.6 fL (80.0-100.0); Mean Corpuscular HGB Conc 33.8 g/dL (31.0-36.0); Mean Platelet Volume 11.7 fL (7.4-10.4); Platelet Count 166 K/mcL (140-440); Red Cell Distribution Width 13.1 % (11.5-14.5); WBC 9.4 K/mcL (4.5-11.0)
[2022-01-16 06:52] LABS: Blood Urea Nitrogen 8 mg/dL (8-23); Calcium 8.5 mg/dL (8.6-10.4); Carbon Dioxide 27 mmol/L (22-30); Chloride 104 mmol/L (96-108); Glomerular Filtration Rate 102; Glucose 147 mg/dL (70-105)
--- NOTE | 2022-01-16 07:14 | XRay Report ---
INDICATION: eval SBO TECHNIQUE: Supine and upright abdomen. COMPARISON: Previous CT scan dated 01/14/2022. Previous plain film examination dated 01/14/2022 FINDINGS:There is bowel gas within small and large bowel. Bowel gas pattern is considered improved consistent with resolving or resolved mechanical small bowel obstruction. There is no pneumoperitoneum. No biliary or portal venous gas. No detectable pneumatosis. There is degenerative disc disease in the lumbar spine with left convex scoliosis IMPRESSION: 1. Improved bowel gas pattern 2. Findings consistent with resolving or resolved small bowel obstruction Interpreted and Authenticated by: Munir Preciado 01/16/22
[2022-01-16] MEDS: DEXTROSE 5%-1/2NS W/10MEQ KCL 1,000 ML IV SCH ×5 (08:37→23:11)
[2022-01-16] MEDS: INSULIN LISPRO 1 UNIT/0.01 ML UNIT SQ SCH ×4 (08:43→20:32)
[2022-01-16] MEDS: ATORVASTATIN 20 MG TABLET PO SCH (08:55)
[2022-01-16] MEDS: GEMFIBROZIL 600 MG TABLET PO SCH (08:55)
[2022-01-16] MEDS: PANTOPRAZOLE 40 MG TABLET PO SCH (08:55)
[2022-01-16] MEDS: CYANOCOBALAMIN (VITAMIN B-12) 500 MCG TABLET PO SCH (08:55)
[2022-01-16] MEDS: VERAPAMIL 120 MG TAB.XL.24H PO SCH (08:55)
--- NOTE | 2022-01-16 10:15 | General Surgery Progress Note ---
SUBJECTIVE Subjective Patient information: Note initiated : 01/16/22 at 10:11 am Service Date, if different from initiated Date: [] Patient: Damian Lambert 71 y/o M admitted on 01/14/22 for abd pain/nausea/weakness. Chief Complaint: [HD#3 Presumed Adhesion Related SBO] NGT was removed inadverdently sometime last night. Has had stools and thinks he's passed some gas. Plain films this AM look improved with decent amounts of gas in the colon. Constitutional Vitals: Vital Signs Temp Pulse Resp BP Pulse Ox 98.4 F 63 18 147/72 97 01/16/22 07:08 01/16/22 07:08 01/16/22 07:08 01/16/22 07:08 01/16/22 07:08 Period Temp Pulse Resp BP Sys/Seaman Pulse Ox Last 24 Hr 98.0 F-99.1 F 59-68 12-18 138-150/67-76 95-97 Intake and Output 01/15/22 01/16/22 01/16/22 21:59 05:59 13:59 Intake Total 1100 1100 Output Total 1400 0 Balance -300 1100 Weight 155 lb 4.8 oz Intake & Output: Intake & Output 01/15/22 01/16/22 01/16/22 21:59 05:59 13:59 Intake Total 1100 1100 Output Total 1400 0 Balance -300 1100 Weight 155 lb 4.8 oz Intake: IV 1100 1100 Dextrose 5%-1/2Ns W/10Meq KCl 1 1000 1000 ,000 ml @ 125 mls/hr IV .Q8H [facility] Rx#:[id number] Zosyn 3.375 gm In Dextrose 5% 100 100 in Water 50 ml @ 100 mls/hr IV Q6H [facility] Rx#:[id number] Oral 0 0 Output: Gastric Drainage 800 Right Nare 800 Void Amount 400 0 Urine/Stool Mix 200 Other: Urine Appearance Cloudy Urine Color Bright Yellow Urine Odor Normal Stool Size Small Large Stool Color Green Brown Stool Consistency Liquid Liquid Watery Loose # Bowel Movements 1 General appearance: average body habitus, cooperative and no acute distress Respiratory Additional comments: normal respiratory effort without distress Cardiovascular Cardiovascular exam: Present RRR GI/Abdominal Additional comments: belly soft and non distended, seems non tender, no mass A/P Assessment and plan (1) SBO (small bowel obstruction): Status: Acute Plan HD#3 Presumed Adhesion Related SBO Seems clinically improved. NGT is out now and so will likely hold off on planned SBFT via NGT Given that he feels well, is having bowel function and normalizing plain films, will start clears and see how he does If has recurrence of symptoms with clears, will replace NGT and re evaluate Increase activity and time OOB Time Spent With Patient Time: Total time spent is greater than 50% in coordination of care (as documented) at patient's floor/unit and/or counseling patient:
[2022-01-16] MEDS: Diclofenac Sodium 1 % gel TOPICAL SCH ×4 (10:40→20:36)
[2022-01-16] MEDS: HYDROmorphone 0.5 MG/0.5 ML SYRINGE IV PRN (16:10)
[2022-01-16] MEDS: GABAPENTIN 300 MG CAPSULE PO SCH (20:35)
[2022-01-17] MEDS: DEXTROSE 5%-1/2NS W/10MEQ KCL 1,000 ML IV SCH (04:42)
[2022-01-17] MEDS: PIPERACILLIN SODIUM/TAZOBACTAM 3.375 GM in DEXTROSE 5% IN WATER 50 ML IV SCH ×2 (05:20→11:38)
[2022-01-17] MEDS: 0.9 % SODIUM CHLORIDE 10 ML SYRINGE IV SCH ×2 (05:20→13:15)
[2022-01-17] MEDS: INSULIN LISPRO 1 UNIT/0.01 ML UNIT SQ SCH ×3 (07:47→16:50)
[2022-01-17] MEDS: PANTOPRAZOLE 40 MG TABLET PO SCH (07:50)
[2022-01-17] MEDS ORDERED: DEXTROSE 5%-1/2NS W/10MEQ KCL 1,000 ML IV SCH (09:50)
[2022-01-17] MEDS: Diclofenac Sodium 1 % gel TOPICAL SCH ×3 (10:11→16:50)
[2022-01-17] MEDS: GEMFIBROZIL 600 MG TABLET PO SCH (10:20)
[2022-01-17] MEDS: VERAPAMIL 120 MG TAB.XL.24H PO SCH (10:20)
[2022-01-17] MEDS: ATORVASTATIN 20 MG TABLET PO SCH (10:20)
[2022-01-17] MEDS: CYANOCOBALAMIN (VITAMIN B-12) 500 MCG TABLET PO SCH (10:20)
--- NOTE | 2022-01-17 10:54 | General Surgery Progress Note ---
SUBJECTIVE Subjective Patient information: Note initiated : 01/17/22 at 8:30 am Service Date, if different from initiated Date: [] Patient: Damian Lambert 71 y/o M admitted on 01/14/22 for abd pain/nausea/weakness. Chief Complaint: [HD#4 SBO] Tolerated clears fine yesterday, passing gas and stool without issue and adamant that he feels "back to normal" and denies any abdominal pain or nausea, vomiting over past 2 days. Constitutional Vitals: Vital Signs Temp Pulse Resp BP Pulse Ox 100.2 F H 58 L 16 144/78 98 01/17/22 07:29 01/17/22 07:29 01/17/22 07:29 01/17/22 07:29 01/17/22 07:45 Period Temp Pulse Resp BP Sys/Seaman Pulse Ox Last 24 Hr 97.9 F-100.2 F 55-71 16-18 132-167/66-83 96-98 Intake and Output 01/16/22 01/17/22 01/17/22 21:59 05:59 13:59 Intake Total 1650 1400 600 Output Total 550 950 Balance 1100 450 600 Weight 157 lb Intake & Output: Intake & Output 01/16/22 01/17/22 01/17/22 21:59 05:59 13:59 Intake Total 1650 1400 600 Output Total 550 950 Balance 1100 450 600 Weight 157 lb Intake: IV 1650 1100 600 Dextrose 5%-1/2Ns W/10Meq KCl 1 1600 1000 600 ,000 ml @ 100 mls/hr IV .Q10H [facility] Rx#:[id number] Zosyn 3.375 gm In Dextrose 5% 50 100 in Water 50 ml @ 100 mls/hr IV Q6H [facility] Rx#:[id number] Oral 300 Output: Void Amount 550 950 Other: Urine Appearance Clear Clear Urine Color Bright Yellow Pale Urine Odor Normal Stool Size Small Stool Color Brown Brown Stool Consistency Liquid Loose # Voids 1 # Bowel Movements 1 1 Exam: Looks well, NAD Respiratory Additional comments: Normal respiratory effort without distress Cardiovascular Cardiovascular exam: Present RRR GI/Abdominal Additional comments: belly is soft and non tender, non distended, no mass Extremities Exam Additional comments: appear well perfused A/P Narrative A/P Narrative: HD #4 SBO Continues to appear clinically resolved Advance to regular diet If doing well, home later today Clinic follow up with repeat CT scan at the 3-4 letitia to assure no residual abnormalities Time Spent With Patient Time: Total time spent is greater than 50% in coordination of care (as documented) at patient's floor/unit and/or counseling patient:
--- NOTE | 2022-01-23 07:50 | Discharge Summary ---
DATE OF ADMISSION: 01/14/2022 DATE OF DISCHARGE: 01/17/2022 ADMITTING PHYSICIAN: Balaji Saravia MD REASON FOR ADMISSION: Small bowel obstruction. HOSPITAL COURSE: The patient is a 71-year-old male who presented to the Emergency Room on 01/14/2022 with pain, discomfort, dry heaves and other issues. Imaging was consistent with small bowel obstruction as was his examination at that time. He had a prior open abdominal procedure, so there was some basis to believe this might be an adhesion-related obstruction--no mass, tumor, or hernia seen on imaging. An NG tube was placed. He was admitted for conservative management as he had no indications for emergent operative intervention. He did quite well and improved quickly over the next 24-48 hours and I believe by the evening of hospital day 2 his NG tube had been inadvertently removed by himself, and was not replaced as he was beginning to pass gas and was feeling better overall. He was started on a clear liquid diet and advanced to a regular diet and felt ready for discharge by 01/17/2022. At that time, he had full resolution of all his presenting symptoms. He was tolerating his diet and having good bowel function. COMPLICATIONS: None. PROCEDURES: None. DISPOSITION: Follow up in Clinic with Dr. Saravia. BW:brisa Job ID: [id number] Doc ID: [id number] Balaji Saravia M.D.
== END 2022-01-17 17:55 | disposition home or self-care (01) | DRG 390 ==
LOC: ED 09:15 → MEDSUR 13:35
PROVIDERS: ADMIT Surgery Surgical Critical Care; ATTEND Surgery Surgical Critical Care